=== PATIENT | female | born 1960 | race Caucasian/White ===

== ENCOUNTER 2016-12-01 00:53 | Emergency (ER) | payer OTHER ==
[~2016-12-01] VITALS: Ht 170.2 cm; Wt 75.0 kg
[~2016-12-01 00:53] MED LIST: ATV/1 PO; BUPRTAB51 PO; SYN112 PO; TRAZ100T29 PO
[2016-12-01 00:55] VITALS: TEMP 36.6; Ht 170.2 cm; Wt 75.0 kg
[2016-12-01] MEDS ORDERED: PROPARACAINE HCL 0.5% OP SOLN 15 ML BTL OP STA (01:04)
[2016-12-01] MEDS ORDERED: PROPARACAINE HCL 0.5% OP SOLN 15 ML BTL ONE (01:06)
[2016-12-01] MEDS ORDERED: CIPROFLOXACIN HCL 0.3% OP SOLN 2.5 ML BTL OP STA (01:18)
[2016-12-01] MEDS ORDERED: CIPROFLOXACIN HCL 0.3% OP SOLN 2.5 ML BTL OP ONE (01:30)
[2016-12-01] MEDS ORDERED: OPTIRAY 320 IV PRN (01:30)
[2016-12-01] MEDS ORDERED: METOCLOPRAMIDE HCL INJ 5 MG/ML 2 ML VIAL IV STA (01:35)
[2016-12-01] MEDS ORDERED: DiphenhydrAMINE HCL 50 MG/ML VIAL IV STA ×2 (01:35→02:04)
[2016-12-01 01:39] LABS: BASO % 0.2 %; BASO ABS # 0.02 K/uL (0-0.2); COMPLETE YES; EOS % 0.6 %; HEMATOCRIT 45.3 % (37-47); IG% 0.2 %; LYMPH % 10.9 %; LYMPH ABS # 1.38 K/uL (1.2-3.4); MEAN CELL VOLUME 84.4 fL (80-100); MEAN CORPUSCULAR HEMOGLOBIN 27.7 pg (25-34); MEAN CORPUSCULAR HGB CONC 32.9 g/dl (32-36); MEAN PLATELET VOLUME 9.6 fL (7.4-10.4); MONO % 6.2 %; NEUT % 81.9 %; PLATELET COUNT 192 K/uL (130-400); RED BLOOD COUNT 5.37 M/uL (4.2-5.4); WHITE BLOOD COUNT 12.65 K/uL (4.8-10.8)
[2016-12-01] MEDS ORDERED: DEXAMETHASONE SOD INJ 10 MG/ML VIAL IV ONE (01:45)
[2016-12-01 01:56] LABS: BLOOD UREA NITROGEN 9 mg/dl (7-18); BUN/CREATININE RATIO 10.1 (10-20); C-REACTIVE PROTEIN < 0.29 mg/dl (0-0.29); CALCIUM 8.7 mg/dl (8.5-10.1); CARBON DIOXIDE 27 mmol/L (21-32); CHLORIDE 106 mmol/L (98-107); CREATININE 0.88 mg/dl (0.60-1.20); GLUCOSE 115 mg/dl (70-99); POTASSIUM 3.8 mmol/L (3.5-5.1); SODIUM 140 mmol/L (136-145)
[2016-12-01] MEDS ORDERED: LORAZEPAM 2 MG/ML 1 ML VIAL ONE (02:38)
[2016-12-01] MEDS ORDERED: LORAZEPAM 2 MG/ML 1 ML VIAL IV STA (02:47)
[2016-12-01] MEDS ORDERED: LORA-741 PO (03:15)
[2016-12-01] MEDS ORDERED: BUSP15TA70 PO (03:16)
[2016-12-01] MEDS ORDERED: LEVO100T7 PO (03:17)
--- NOTE | 2016-12-01 03:18 | EMERGENCY ROOM VISIT NOTE ---
History First contact with patient: 00:58 Chief Complaint: EYE ASSESSMENT Stated Complaint: SEVERE HEADACHE,VISUAL LOSS,LIGHT SENSITIVITY,JAW History of Present Illness The patient is a 56 year old female who presents to the Emergency Room with complaints of headache today while driving with right eye discomfort and then both eyes started to hurt and increase in severity. Patient does wear contacts. She was Touching at the Eye. When She Got Home She Removed Both Contacts and Had Increased Pain. Patient has slept recently in her contacts. Her makeup on her eyes is old. Tetanus is current. Patient states because the pain and photosensitivity she is unable to fully open her eyes but can see but is blurry. No prior eye injury. Patient was a headache to the right temporal and eye area described as throbbing, 8 out of 10. Nothing makes it better or worse. Patient denies chest pain, dyspnea, numbness, tingling, complete loss of vision, fever, chills, cold symptoms, dental pain, facial pain, flulike illness, localized weakness. Review of Systems See HPI for pertinent positives & negatives. A total of 10 systems reviewed and were otherwise negative. Past Medical/Surgical History Medical Problems: (1) Acid reflux (2) Acute Bronchitis (3) Acute Pharyngitis (4) Anxiety State Nos (5) Chronic Cholecystitis (6) Hypertension Nos (7) Hypothyroidism Nos Surgical Problems: (1) H/O colonoscopy (2) S/P cholecystectomy Family History FH: cancer FH: heart disease Social History Smoking Status: Never Smoker Alcohol Use: none Drug Use: none Marital Status: single, Housing Status: lives with family Occupation Status: employed Current/Historical Medications Scheduled Bupropion (Wellbutrin-Xl), 300 MG PO DAILY Buspirone Hcl (Buspar), 15 MG PO BID Levothyroxine (Synthroid *), 0.112 MG PO DAILY Trazodone Hcl (Trazodone), Unknown Dose PO HS Scheduled PRN Lorazepam (Ativan), 1 MG PO TID PRN for Anxiety Lorazepam (Ativan), 0.5 MG PO TID PRN for Anxiety Allergies Coded Allergies: No Known Allergies (Verified , 05/31/11) Physical Exam Vital Signs Date Time Temp Pulse Resp B/P Pulse Ox O2 Delivery O2 Flow Rate FiO2 12/01/16 02:41 77 20 150/86 98 Room Air 12/01/16 00:55 36.6 88 21 144/99 100 Physical Exam VITALS: Vitals are noted on the nurse's note and reviewed by myself. Vital signs stable. GENERAL: Pleasant female who appears uncomfortable secondary to pain, nondiaphoretic, well-developed well-nourished. SKIN: The skin was without rashes, erythema, edema, or bruising. There is no tenting of the skin. Capillary reflex less than 2 seconds. HEAD: Normocephalic atraumatic. EARS: External auditory canals clear, tympanic membranes pearly ureña without erythema or effusion bilaterally. EYES: The pupils are equal round and reactive to light and accommodation. EOMs are full and without tenderness. There is discharge of clear tears from both eyes which are injected. There is no foreign body visible under the eyelid even after lid eversion. Funduscopic exam reveals no hemorrhages, papilledema, or other abnormalities. No foreign body was seen embedded in the cornea under slit lamp exam. The cornea was clear and no hyphema was seen. Fluorescein uptake was observed with ultraviolet light significant for a corneal ulcer of the right eye at 11 and 12:00. The left eye had a corneal abrasion at 3 and 4:00. NOSE: Patent, turbinates without inflammation or discharge. No sinus tenderness. MOUTH: Mucous membranes moist. Pharynx without erythema or exudate. Uvula midline. Airway patent. Tongue does not deviate. Face: Right temporal area tender to palpation. Patient can fully open and close jaw without pain. NECK: Supple without nuchal rigidity. No lymphadenopathy. No thyromegaly. Cervical spine is nontender. No JVD. HEART: Regular rate and rhythm without murmurs gallops or rubs. LUNGS: Clear to auscultation bilaterally without wheezes, rales or rhonchi. No dullness to percussion. No retractions or accessory muscle use. ABDOMEN: Positive bowel sounds x 4. Normal tympanic percussion. Soft, nontender, without masses or organomegaly. Hernández sign negative. No guarding or rebound tenderness. MUSCULOSKELETAL: No muscle atrophy, erythema, or edema noted. NEURO: Patient was alert and oriented to person place and time. Normal sensation to light and sharp touch. No focal neurological deficits. Cranial nerves II through XII grossly intact. No pronator drift. Cerebellar exam intact. Medical Decision & Procedures Laboratory Results 12/01/16 01:25 Red Blood Count 5.37, Mean Corpuscular Volume 84.4, Mean Corpuscular Hemoglobin 27.7, Mean Corpuscular Hemoglobin Concent 32.9, Mean Platelet Volume 9.6, Neutrophils (%) (Auto) 81.9, Lymphocytes (%) (Auto) 10.9, Monocytes (%) (Auto) 6.2, Eosinophils (%) (Auto) 0.6, Basophils (%) (Auto) 0.2, Neutrophils # (Auto) 10.36, Lymphocytes # (Auto) 1.38, Monocytes # (Auto) 0.79, Eosinophils # (Auto) 0.08, Basophils # (Auto) 0.02 12/01/16 01:25 Test 12/01/16 01:25 White Blood Count 12.65 K/uL (4.8-10.8) Red Blood Count 5.37 M/uL (4.2-5.4) Hemoglobin 14.9 g/dL (12.0-16.0) Hematocrit 45.3 % (37-47) Mean Corpuscular Volume 84.4 fL (80-100) Mean Corpuscular Hemoglobin 27.7 pg (25-34) Mean Corpuscular Hemoglobin Concent 32.9 g/dl (32-36) Platelet Count 192 K/uL (130-400) Mean Platelet Volume 9.6 fL (7.4-10.4) Neutrophils (%) (Auto) 81.9 % Lymphocytes (%) (Auto) 10.9 % Monocytes (%) (Auto) 6.2 % Eosinophils (%) (Auto) 0.6 % Basophils (%) (Auto) 0.2 % Neutrophils # (Auto) 10.36 K/uL (1.4-6.5) Lymphocytes # (Auto) 1.38 K/uL (1.2-3.4) Monocytes # (Auto) 0.79 K/uL (0.11-0.59) Eosinophils # (Auto) 0.08 K/uL (0-0.5) Basophils # (Auto) 0.02 K/uL (0-0.2) RDW Standard Deviation 43.8 fL (36.4-46.3) RDW Coefficient of Variation 14.2 % (11.5-14.5) Immature Granulocyte % (Auto) 0.2 % Immature Granulocyte # (Auto) 0.02 K/uL (0.00-0.02) Erythrocyte Sedimentation Rate 24 mm/hr (0-21) Anion Gap 7.0 mmol/L (3-11) Est Creatinine Clear Calc Drug Dose 75.5 ml/min Estimated GFR () 85.1 Estimated GFR (Non- 73.4 BUN/Creatinine Ratio 10.1 (10-20) Calcium Level 8.7 mg/dl (8.5-10.1) C-Reactive Protein < 0.29 mg/dl (0-0.29) Medications Administered Medications (Trade) Dose Ordered Sig/Tomer Route Start Time Stop Time Status Last Admin Dose Admin Ciprofloxacin HCl (Ciprofloxacin 0.3% Op Soln) 2 drops NOW STAT OP 12/01/16 01:18 12/01/16 01:20 DC 12/01/16 01:42 37 DROPS Ciprofloxacin HCl (Ciprofloxacin 0.3% Op Soln) 2 drops NOW ONCE OP 12/01/16 01:30 12/01/16 01:31 DC 12/01/16 01:42 37 DROPS Dexamethasone Sodium Phosphate (Decadron Inj) 10 mg NOW ONCE IV 12/01/16 01:45 12/01/16 01:46 DC 12/01/16 01:43 10 MG Metoclopramide HCl (Reglan Inj) 10 mg NOW STAT IV 12/01/16 01:35 12/01/16 01:37 DC 12/01/16 01:43 10 MG Diphenhydramine HCl (Benadryl Inj) 12.5 mg NOW STAT IV 12/01/16 01:35 12/01/16 01:37 DC 12/01/16 01:43 12.5 MG Diphenhydramine HCl (Benadryl Inj) 25 mg NOW STAT IV 12/01/16 02:04 12/01/16 02:05 DC 12/01/16 02:06 25 MG Lorazepam (Ativan Inj) 2 mg STK-MED ONCE .ROUTE 12/01/16 02:38 12/01/16 02:39 DC 12/01/16 02:41 1 MG ED Course Prior records/ancillary studies reviewed. Additional history obtained from family. Triage Nursing notes reviewed. The patient's history was concerning for headache and eye problems. Differential diagnosis: Etiologies such as corneal abrasion, temporal arteritis, corneal ulcer, keratitis, retinal detachment, conjunctivitis, migraine headache, meningitis, sinusitis, CO exposure, ICH, SAH, infection, tumor, headache, sinus thrombosis, arterial dissection, as well as others were entertained. Physical examination findings: As above. Non-focal. ER treatment provided: Alcaine drops, Cipro drops, Decadron, Reglan, Benadryl On reassessment the patient felt better. Diagnostics interpreted by me: The labs revealed mild leukocytosis. Negative sedimentation rate. Imaging studies: CT HEAD: No ICH, mass effect or edema. No evidence of acute cortical stroke. Visualized sinuses and mastoid air cells are clear. CT ORBITS: No fractures. The paranasal sinuses and mastoid air cells are clear. Globes appear intact. The retro-orbital soft tissues are unremarkable. No pathologic enhancement. Radiologist: Yoel Carpenter MD This appears to be consistent with corneal ulcer and abrasion most likely secondary to contact overuse. The patient felt much better to be medicated as above. Labs were reviewed and no signs of temporal arteritis. She is advised no contacts or eye makeup until cleared by ophthalmology. She is advised to follow-up with [facility] in a few days or here in the ER sooner for eye pain , vision problems, worsening signs or symptoms or as needed. Patient was neurovascular and neurologically intact. She is well-appearing. She requested to leave. I felt this is reasonable. By the evaluation outlined above emergent etiologies such as meningitis, sinusitis, CO exposure, ICH, SAH, infection, temporal arteritis, tumor, sinus thrombosis, arterial dissection, as well as others were deemed relatively unlikely. The pt informed about the findings as listed above. All questions were answered and pleased with the treatment. Return instructions were outlined and the patient was discharged in stable condition. Outpatient prescription management: Cipro drops, OxyIR Referral: The patient was referred back to their primary care physician and ophthalmology for follow-up in 2 to 3 days for a recheck of the current condition. Case reviewed with my attending Medical Decision as above Impression Primary Impression: Corneal ulcer of right eye Additional Impressions: Corneal abrasion, left Headache Departure Information Dispostion Home / Self-Care Condition GOOD Referrals Hillary Fay D.O. (PCP) Patient Instructions My [facility] Additional Instructions DO NOT drive, drink alcohol, operate machinery, or perform dangerous activities today. You were given medications in the ER that can affect your ability to safely function or operate a vehicle. Oxycodone (OxyIR) 5mg: Take 1-2 pills every four hours for breakthrough pain. Avoid alcohol, operating machinery or dangerous equipment, working on ladders or roofs, DRIVING, or situations where being under the influence may be dangerous. It is recommended to use an [id number] stool softener such as Colace, 100mg twice daily while taking this medication to avoid constipation. Ibuprofen(Motrin, Advil) may be used for fever or pain. Use 600mg every six hours as needed. Take with food. Avoid using more than 2400mg in a 24 hour period. Do not use 2400mg per day for more than three consecutive days without physician direction. Prolonged inappropriate use can lead to stomach upset or ulcers. This medication can be taken if you need to drive, work, or perform activities which may be dangerous when taking narcotic pain medication. (AND/OR) Acetaminophen(Tylenol) may be used for fever or pain. Use 1000mg every six hours as needed. Avoid using more than 3000mg in a 24 hour period. This medication can be taken if you need to drive, work, or perform activities which may be dangerous when taking narcotic pain medication. Use Ciloxan two drops in right and left eye every two hours while awake for two days; then two drops every four hours while awake for 5 days. If you wear contacts, no contacts until cleared by ophthalmology. Discard your current eye makeup. Do not wear any eye makeup until cleared by ophthalmology. Return to the ED or see your family doctor or eye doctor in 36-48 hours for a recheck. Return to the ED for increasing pain or changes in vision. Problem Qualifiers Additional Impressions: Corneal abrasion, left Encounter type: initial encounter Qualified Codes: S05.02XA - Injury of conjunctiva and corneal abrasion without foreign body, left eye, initial encounter
[2016-12-01] MEDS ORDERED: TRAZ50TA35 PO (03:20)
[2016-12-01] MEDS ORDERED: VALA500T39 PO (03:23)
[2016-12-01] MEDS ORDERED: OXYCODONE IR HOME PACK PO ONE (03:30)
[2016-12-01] MEDS ORDERED: OXYC1TAB3 PO ×2 (03:33→04:36)
[2016-12-01 03:38] VITALS: BP 123/80; PULSE 94; O2SAT 97
--- NOTE | 2016-12-01 06:34 | DIAGNOSTIC IMAGING REPORT ---
CT SCAN OF THE ORBITS COMBO CLINICAL HISTORY: Headache. Right eye pain. Shortness sensitivity. COMPARISON STUDY: CT of the brain performed concurrently on 12/01/2016. TECHNIQUE: High-resolution CT scan of the orbits is performed before and following the IV administration of 93 cc of Optiray 320. Images are reviewed in the axial, sagittal, and coronal planes. IV contrast was administered without complication. FINDINGS: The bony orbits are intact. The orbital contents are normal in appearance. The globes are intact. The extraocular muscles are normal and symmetric. There is no evidence of intra or extraconal mass. The left superior ophthalmic vein appears asymmetrically enlarged as compared to the right, possibly representing a venous varix. The vessels are patent. The periorbital soft tissues are within normal limits. There is trace fluid within the right maxillary antrum. Trace mucosal thickening is seen in the left frontal sinus. The remaining paranasal sinuses are clear. The mastoid air cells are well pneumatized. The remaining visualized facial bones and calvarium are maintained. There is mild atherosclerotic calcification of the cavernous carotid arteries. The visualized brain parenchyma is within normal limits. IMPRESSION: 1. The bony orbits are intact. 2. No acute orbital abnormality is identified. Electronically signed by: Antony Black M.D. 12/01/2016 6:32 AM Dictated Date/Time: 12/01/2016 6:16 AM
--- NOTE | 2016-12-01 07:19 | DIAGNOSTIC IMAGING REPORT ---
CT SCAN OF THE BRAIN WITHOUT IV CONTRAST CLINICAL HISTORY: Right eye pain. Headache. COMPARISON STUDY: No priors. TECHNIQUE: Unenhanced axial CT scan of the brain is performed from the vertex to the skull base. Automated dose control exposure was utilized. FINDINGS: Brain parenchyma: The brain parenchyma is normal in appearance. There is no hemorrhage, mass effect, or evidence of acute territorial ischemia by CT criteria. Quinones-white matter is preserved. No extra-axial fluid collection is seen. Ventricles, sulci, cisterns: Normal in configuration. Intracranial vasculature: There is mild atherosclerotic calcification of the cavernous carotid arteries. Calvarium: Unremarkable. Sinuses and mastoids: The visualized paranasal sinuses are clear. The mastoid air cells are well pneumatized. Orbits: The bony orbits are grossly intact. IMPRESSION: No acute intracranial abnormality. Electronically signed by: Antony Black M.D. 12/01/2016 7:17 AM Dictated Date/Time: 12/01/2016 7:16 AM
== END 2016-12-01 03:40 | disposition home or self-care (01) ==
LOC: C.EDB 00:54
DX: H16.001 Unspecified corneal ulcer, right eye (principal); S05.02XA Injury of conjunctiva and corneal abrasion without foreign body, left eye, initial encounter; X58.XXXA Exposure to other specified factors, initial encounter; R51 Headache; K21.9 Gastro-esophageal reflux disease without esophagitis; F41.9 Anxiety disorder, unspecified; I10 Essential (primary) hypertension; E03.9 Hypothyroidism, unspecified; K81.1 Chronic cholecystitis